=== PATIENT | female | born 1950 | race Caucasian/White ===

== ENCOUNTER → 2016-11-05 | Outpatient (CLI) | payer MEDICARE, MEDICAID ==
[~2016-11-05] MED LIST: ACET-783 PO; CLON-202 PO; DICY20TA54 PO; FERR160T11 PO; FISH1CAP16 PO; HYDR-4072 PO; HYDR-4074 PO; IBUP200T53 PO; LISI-621 PO; MULT-806 PO; ORPH100T2 PO; PRED10TA PO; SERT-88 PO
--- NOTE | 2016-11-05 15:27 | DI ---
Indication: ITS.REASON: NECK PAIN PROCEDURE: CERVICAL SPINE 3 VIEWS OR LESS: Encounter: Initial Comparison: July 22, 2016 Findings: Anterior C4-C7 cervical spinal fusion and interbody bone grafting is again noted. Hardware is stable in alignment without evidence of fracture or failure. There is some incorporation of the bone graft material. No acute fracture or subluxation seen. Disc spaces are unchanged. Degenerative uncovertebral and facet changes are similar. Carotid artery calcifications. Impression: Stable appearance of the C4-C7 cervical fusion. .
--- NOTE | 2016-11-05 15:32 | DI ---
Indication: ITS.REASON: Back PAIN, recent back surgery in September PROCEDURE: LUMBAR SPINE 2-3 VIEWS: Encounter: Initial Comparison: MRI lumbar spine dated August 18, 2016 Findings: Interval surgery with posterior L3-L5 spinal fusion. Bilateral pedicle screws and rods appear intact without evidence of hardware loosening or failure. Disk prosthesis noted at L4-L5. Disk spaces are unchanged otherwise. Vertebral body heights are maintained. Listhesis of L4 on L5 appears less severe than the prior study. Mild dextroscoliosis. Impression: Interval surgery as above. .
== END ==
LOC: IMA 14:52
PROVIDERS: ATTEND Neurological Surgery
DX: M41.86 Other forms of scoliosis, lumbar region (principal); Z98.1 Arthrodesis status; Z98.890 Other specified postprocedural states; M54.2 Cervicalgia

== ENCOUNTER → 2016-11-12 | Outpatient (CLI) | payer MEDICARE, MEDICAID ==
[2016-11-12 16:35] LABS: BLOOD, URINE NEGATIVE (NEGATIVE); COLOR,URINE YELLOW (YELLOW); LEUKOCYTE ESTERASE ,URINE NEGATIVE (NEGATIVE); NITRITE,URINE NEGATIVE (NEGATIVE); UROBILINOGEN,URINE 0.2 EU/DL (NORMAL)
[2016-11-14 03:35] LABS: FERRITIN 16.5 NG/ML (11-264)
== END ==
LOC: LAB 15:29
PROVIDERS: ATTEND Internal Medicine Medical Oncology
DX: M15.9 Polyosteoarthritis, unspecified (principal); R71.0 Precipitous drop in hematocrit; D47.3 Essential (hemorrhagic) thrombocythemia
CPT/HCPCS: 36415; 81003; 82607; 82728; 82747; 83010; 83540; 83550; 83615

== ENCOUNTER → 2016-11-28 | Outpatient (CLI) | payer MEDICARE, MEDICAID | LOC: LABN 08:50 | PROVIDERS: ATTEND Internal Medicine Medical Oncology | DX: M15.9 Polyosteoarthritis, unspecified (principal); R71.0 Precipitous drop in hematocrit; D47.3 Essential (hemorrhagic) thrombocythemia; D64.9 Anemia, unspecified | CPT/HCPCS: 82272 ==